=== PATIENT | female | born 2000 | race Two or more races ===

== ENCOUNTER 2023-11-29 14:19 | Emergency (ER) | payer MEDICAID ==
[~2023-11-29] VITALS: Ht 157.5 cm; Wt 65.9 kg
[2023-11-29 14:28] VITALS: BP 106/44; PULSE 98; RESP 18; TEMP 98.8; O2SAT 99
[2023-11-29] MEDS: BUPRENORPHINE HCL/NALOXONE HCL 8-2 MG SUBLINGUAL TABLET SL ONE (16:33)
[2023-11-29] MEDS ORDERED: BUPR1TAB46 SL (16:38)
== END 2023-11-29 17:06 | disposition home or self-care (01) ==
LOC: EMS 14:19
DX: Z76.0 Encounter for issue of repeat prescription (principal); F17.210 Nicotine dependence, cigarettes, uncomplicated; Z98.890 Other specified postprocedural states
CPT/HCPCS: 99283

== ENCOUNTER 2024-02-25 11:48 | Emergency (ER) | payer MEDICAID ==
[~2024-02-25] VITALS: Ht 160 cm; Wt 63.6 kg
[~2024-02-25 11:48] MED LIST: BUPR1TAB46 SL
[2024-02-25 11:53] VITALS: BP 126/69; PULSE 86; RESP 18; TEMP 98.2; O2SAT 100
[2024-02-25 12:45] LABS: COVID AG,FIA SOURCE NASAL SWAB
[2024-02-25] MEDS: ACETAMINOPHEN 325 MG TABLET PO ONE (12:47)
[2024-02-25] MEDS: IBUPROFEN 400 MG TABLET PO ONE (12:47)
[2024-02-25 13:22] LABS: SARS-COV2 (COVID) ANTIGEN,FIA Negative (Negative)
[2024-02-25 13:25] LABS: INFLUENZA TYPE B NEGATIVE FOR TYPE B (NEGATIVE)
[2024-02-25 13:37] LABS: INFLUENZA TYPE A POSITIVE FOR TYPE A (NEGATIVE)
[2024-02-25] MEDS ORDERED: ONDA-104 PO (13:39)
== END 2024-02-25 13:50 | disposition home or self-care (01) ==
LOC: EMS 11:49
DX: J10.1 Influenza due to other identified influenza virus with other respiratory manifestations (principal); F17.210 Nicotine dependence, cigarettes, uncomplicated; Z20.822 Contact with and (suspected) exposure to COVID-19
CPT/HCPCS: 87804; 99283

== ENCOUNTER 2024-06-17 12:18 | Emergency (ER) | payer MEDICAID ==
[~2024-06-17] VITALS: Ht 157.5 cm; Wt 68.2 kg
[~2024-06-17 12:18] MED LIST changes: +ONDA-104 PO
[2024-06-17 12:21] VITALS: BP 123/63; PULSE 70; RESP 18; TEMP 99; O2SAT 97
[2024-06-17] MEDS ORDERED: DOXY-354 PO (13:01)
[2024-06-17 13:33] LABS: APPEARANCE,URINE CLEAR (CLEAR); BILIRUBIN,URINE NEGATIVE (NEGATIVE); COLOR,URINE LIGHT YELLOW (YELLOW); GLUCOSE, URINE (UA) NEGATIVE (NEGATIVE); KETONES,URINE NEGATIVE (NEGATIVE); LEUKOCYTE ESTERASE ,URINE MODERATE (NEGATIVE); NITRATE,URINE NEGATIVE (NEGATIVE); OCCULT BLOOD,URINE SMALL (NEGATIVE); PH,URINE 6.5 (5.0-8.0); PROTEIN,URINE NEGATIVE (NEGATIVE); SPECIFIC GRAVITIY, URINE 1.024 (1.003-1.030); UROBILINOGEN,URINE <=1.0 mg/dL (<=1.0)
[2024-06-17] MEDS: DOXYCYCLINE HYCLATE 100 MG TABLET PO ONE (13:33)
[2024-06-17] MEDS: CefTRIAXone SODIUM 1 GM/VIAL IM ONE (13:33)
[2024-06-17] MEDS: LIDOCAINE/PF 1% 2 ML VIAL IM ONE (13:34)
[2024-06-17 13:51] LABS: BACTERIA,URINE Few /HPF (None Seen); RBC,URINE 0-2 /HPF (0-2); SQUAMOUS EPITHELIAL CELL,UR Few /LPF (None Seen)
== END 2024-06-17 13:40 | disposition home or self-care (01) ==
LOC: EMS 12:40
DX: Z11.3 Encounter for screening for infections with a predominantly sexual mode of transmission (principal); F12.90 Cannabis use, unspecified, uncomplicated; Z72.89 Other problems related to lifestyle
CPT/HCPCS: 99284; 81001; 87077; 87086; 87186; 87491; 87591; 96372; J0696; J3490; 99283